=== PATIENT | female | born 1985 | race Caucasian/White ===

== ENCOUNTER 2018-12-21 00:04 | Emergency (ER) | payer SELFPAY ==
[2018-12-21 00:29] VITALS: BP 126/74; PULSE 80; TEMP 97.5; BMI 21.7
[2018-12-21] MEDS ORDERED: FOLIC ACID INJECTION - 1 MG, THIAMINE HCL 100 MG, MULTIVIT INJECTION ADULT 10 ML in SOD... IVPB ONE (02:11)
--- NOTE | 2018-12-21 02:18 | PDOC ---
Attending Attestation - Resident Resident Name: Omkar Peguero - ED Attending Attestation I have performed the following: I have examined & evaluated the patient, The case was reviewed & discussed with the resident, I agree w/resident's findings & plan - HPI HPI: 12/21/18 04:34 Pt brought in because she had alcohol intoxication. - Physicial Exam PE: 12/21/18 04:35 Pt is alert and awake. She has alcohol use; smells of alcohol; Pt was drinking too much in a restaurant; it was closing time, so they called EMS to bring her to the hospital. - Medical Decision Making 12/21/18 04:38 SHe is walking with a steady gait and she is with friends/family who are sober and who want to take her home. Pt was observed here for a couple hrs and she ambulated about the ER and was ultimately sent home with her friends/family Stable for discharge
== END 2018-12-21 03:40 | disposition left against medical advice (07) ==
LOC: JER 00:04
PROC: 3E033GC Introduction of Other Therapeutic Substance into Peripheral Vein, Percutaneous Approach (ICD-10-PCS; principal; 2018-12-21)
DX: F10.120 Alcohol abuse with intoxication, uncomplicated (principal)
CPT/HCPCS: 99281-25; J7030